=== PATIENT | female | born 1965 | race Caucasian/White ===

== ENCOUNTER 2025-03-31 20:04 | Emergency (ER) | payer OTHER, SELFPAY ==
[2025-03-31 20:12] VITALS: BP 114/85
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
== END 2025-03-31 21:56 | disposition home or self-care (01) ==
LOC: EMR 20:04
PROVIDERS: EMERGENCY PHYSICIAN Emergency Medicine; FAMILY PHYSICIAN Nurse Practitioner
DX: S93.402A Sprain of unspecified ligament of left ankle, initial encounter (principal); X50.1XXA Overexertion from prolonged static or awkward postures, initial encounter
CPT/HCPCS: 99283; 73610